=== PATIENT | male | born 1955 | race Two or more races ===

== ENCOUNTER 2017-09-13 05:14 | Outpatient (CLI) | END 2017-09-13 05:30 | disposition short-term general hospital (02) | LOC: AMBL 05:14 | PROVIDERS: ATTEND Internal Medicine Geriatric Medicine | DX: R07.9 Chest pain, unspecified (principal); R61 Generalized hyperhidrosis; E11.9 Type 2 diabetes mellitus without complications; I48.91 Unspecified atrial fibrillation; R53.1 Weakness ==